=== PATIENT | male | born 1970 | race Caucasian/White ===

== ENCOUNTER 2023-03-08 10:19 | Outpatient (CLI) | payer BC, SELFPAY ==
--- NOTE | 2023-03-08 10:35 | ECG_ITS ---
Measurements Intervals [place] Rate: 60 P: 23 IA: 165 QRS: -2 QRSD: 94 T: 20 QT: 380 QTc: 382 Interpretive Statements SINUS RHYTHM NORMAL ECG NO PREVIOUS ECG AVAILABLE FOR COMPARISON Electronically Signed On 03-08-2023 19:40:57 CDT by Pino Carranza D.O.
== END 2023-03-08 10:20 | disposition home or self-care (01) ==
PROVIDERS: PCP Family Medicine; Visit Provider Physician Assistant Medical
DX: I25.2 Old myocardial infarction (principal); Z82.49 Family history of ischemic heart disease and other diseases of the circulatory system
CPT/HCPCS: 93005

== ENCOUNTER 2024-06-26 08:38 | Outpatient (CLI) | payer BC, SELFPAY ==
--- NOTE | 2024-06-26 08:55 | ECHO_ITS ---
Patient Info Name: Familia Romero Age: 53 years : 1970 Gender: Male Ht: 70 in Wt: 190 lbs BSA: 2.08 m2 HR: 73 bpm BP: 165 / 91 mmHg Technical Quality: Good Exam Date: 06/26/2024 9:07 AM Exam Location: Echo Lab Patient Status: Outpatient Admit Date: 06/26/2024 Staff Ordering Physician: Michelet Schulz NP Junior Art Director: Constanza Marcos RDCS Attending Provider: Michelet Schulz NP Referring Physician: Zeus ESCAMILLA; Exam Type: CA echo doppler color flow Study Info Indications I25.2 - OLD MYOCARDIAL INFARCTION Complete two-dimensional, color flow and Doppler transthoracic echocardiogram is performed. Strain analysis performed. Summary 1. Complete two-dimensional, color flow and Doppler transthoracic echocardiogram is performed. 2. Left ventricular chamber dimension is normal. 3. Left ventricular systolic function is normal, estimated at 65-70%. 4. The left ventricular diastolic function is abnormal. 5. E/e' 10 is mildly elevated. 6. Global longitudinal strain is normal at -18.6%. 7. Left atrial chamber dimension is mildly enlarged. 8. No pulmonary hypertension, estimated pulmonary arterial systolic pressure is 30 mmHg. Left Ventricle E/e' 10 is mildly elevated. Global longitudinal strain is normal at -18.6%. Left ventricular chamber dimension is normal. Left ventricular systolic function is normal, estimated at 65-70%. The left ventricular diastolic function is abnormal. Right Ventricle Right ventricular chamber dimension is normal. Right ventricular systolic function is normal. Left Atria Left atrial chamber dimension is mildly enlarged. Right Atria Right atrial chamber dimension is normal. Aortic Valve The aortic valve is trileaflet. There is no aortic valve stenosis. There is no aortic valve regurgitation. Pulmonic Valve There is no pulmonic regurgitation. Mitral Valve There is no mitral valve stenosis. There is no mitral valve regurgitation. Tricuspid Valve There is no tricuspid valve regurgitation. No pulmonary hypertension, estimated pulmonary arterial systolic pressure is 30 mmHg. Pericardium/Pleural There is no pericardial effusion. Inferior Vena Cava Normal inferior vena cava with >50% collapse upon inspiration consistent with normal right atrial pressure, 5 mmHg. Aorta The aortic root size at the sinus of Valsalva is normal. Left Ventricular Outflow Tract Name Value Normal LVOT 2D LVOT Diameter 2.0 cm LVOT Doppler LVOT Peak Gradient 5 mmHg LVOT Mean Gradient 3 mmHg LVOT VTI 25 cm LVOT VTI/AV VTI Ratio 1.0 LVOT Stroke Volume 75 ml LVOT CO 5.0 l/min LVOT CI 2.4 l/min/m2 Pulmonic Valve Name Value Normal RVOT Doppler RVOT Peak Gradient 3 mmHg PV Doppler PV Peak Gradient 5 mmHg Mitral Valve Name Value Normal MV Doppler MV Decel [place] 459 cm/s2 MV PHT 57 ms MV Area (PHT) 3.9 cm2 4.0-5.0 MV Diastolic Function MV E Peak Velocity 90 cm/s MV A Peak Velocity 80 cm/s MV E/A 1.1 MV Decel Time 196 ms Tricuspid Valve Name Value Normal TV Regurgitation Doppler TR Peak Velocity 249 cm/s TR Peak Gradient 25 mmHg Estimated PAP/RSVP RA Pressure 5 mmHg <=5 PA Systolic Pressure 30 mmHg <36 RV Systolic Pressure 30 mmHg <36 Aorta Name Value Normal Ascending Aorta Ao Root Diameter (MM) 3.2 cm Ao Root Diam Index (MM) 1.5 cm/m2 Aortic Valve Name Value Normal AV Doppler AV Peak Velocity 117 cm/s AV Peak Gradient 5 mmHg AV Mean Gradient 3 mmHg AV VTI 24 cm AV Area (Cont Eq VTI) 3.2 cm2 >=3.0 AV Area (Cont Eq [place]) 2.9 cm2 AV Regurgitation 2D LVOT Area 3.0 cm2 Ventricles Name Value Normal LV Dimensions 2D/MM IVS Diastolic Thickness (2D) 0.9 cm 0.6-1.0 IVS Diastole Thickness (MM) 0.9 cm 0.6-1.0 LVID Diastole (2D) 4.9 cm 4.2-5.8 LVID Diastole (MM) 5.1 cm 4.2-5.8 LVIW Diastolic Thickness (2D) 0.8 cm 0.6-1.0 LVIW Diastolic Thickness (MM) 0.9 cm 0.6-1.0 LVID Systole (2D) 3.2 cm 2.5-4.0 LVID Systole (MM) 2.8 cm 2.5-4.0 LVOT Diameter 2.0 cm LV Mass (2D Cubed) 136.65 g 88.00-224.00 LV Mass Index (2D Cubed) 66 g/m2 49-115 Relative Wall Thickness (2D) 0.31 LV Mass (MM Cubed) 151.28 g 88.00-224.00 LV Mass Index (MM Cubed) 73 g/m2 49-115 Relative Wall Thickness (MM) 0.34 LV Fractional Shortening/Ejection Fraction 2D/MM LV Fractional Shortening (2D) 35 % 25-43 LV Fractional Shortening (MM) 45 % 25-43 LV EF (MM Teicholz) 76 % 52-72 LV EF (2D Teicholz) 64 % 52-72 LV Diastolic Volume (4C MOD) 100 ml LV EF (4C MOD) 65 % LV Diastolic Volume (2C MOD) 70 ml LV EF (2C MOD) 58 % LV Diastolic Volume (BP MOD) 84 ml 62-150 LV Diastolic Volume Index (BP MOD) 40 ml/m2 34-74 LV Systolic Volume (BP MOD) 33 ml 21-61 LV Systolic Volume Index (BP MOD) 16 ml/m2 11-31 LV EF (BP MOD) 61 % 52-72 LV Diastolic Length (4C) 7.8 cm LV Systolic Length (4C) 6.5 cm LV Stroke Volume (4C MOD) 66 ml Atria Name Value Normal LA Dimensions LA Dimension (MM) 3.9 cm 3.0-4.1 LA Volume (4C A-L) 53 ml LA Volume (BP A-L) 49 ml RA Dimensions RA Area (4C) 13.6 cm2 <=18.0 EchoPAC Name Value Normal AutoEF LVCO_BiP_Q (Wejr9ZMO) 4.2 l/min LVEF_BiP_Q (Smgo1DJR) 63 % LVSV_BiP_Q (Tgkd7ZFO) 61 ml LVVED_BiP_Q (Pkmm0WWU) 98 ml LVVES_BiP_Q (Vmma3LDN) 37 ml HR_4Ch_Q (Yfnw1TTX) 66 bpm LVCO_4Ch_Q (Kwkb8CTX) 5.2 l/min LVEF_4Ch_Q (Bmzs8XOB) 64 % LVLd_4Ch_Q (Xwdo3IOE) 8.3 cm LVLs_4Ch_Q (Fokc4HPD) 6.8 cm LVSV_4Ch_Q (Lzes7DUE) 78 ml LVVED_4Ch_Q (Nnqn3ZUW) 123 ml LVVES_4Ch_Q (Iglk5REH) 44 ml HR_2Ch_Q (Roko8ADL) 69 bpm LVCO_2Ch_Q (Hlhc0TKO) 3.1 l/min LVEF_2Ch_Q (Hkvc3ABO) 60 % LVLd_2Ch_Q (Mxwb1UZL) 8.1 cm LVLs_2Ch_Q (Fqzc0EQA) 6.6 cm LVSV_2Ch_Q (Laui4GUC) 45 ml LVVED_2Ch_Q (Ouoz1OQR) 75 ml LVVES_2Ch_Q (Fvgk5UYG) 30 ml ERIBERTO AA peak sys SL (AWMA) 17.1 % AAS peak sys SL (AWMA) 24.9 % AI peak sys SL (AWMA) 24.4 % AL peak sys SL (AWMA) 14.2 % AP peak sys SL (AWMA) 20.3 % peak sys SL (AWMA) 19.7 % AVC (AWMA) 400 ms BA peak sys SL (AWMA) 18.3 % BAS peak sys SL (AWMA) 12.9 % BI peak sys SL (AWMA) 20.0 % BL peak sys SL (AWMA) 21.2 % BP peak sys SL (AWMA) 24.1 % BS peak sys SL (AWMA) 13.7 % G peak SL(A2C) (AWMA) 19.5 % G peak SL(A4C) (AWMA) 17.4 % G peak SL(APLAX) (AWMA) 19.2 % G peak SL(Avg) (AWMA) 18.7 % MA peak sys SL (AWMA) 15.4 % MAS peak sys SL (AWMA) 19.8 % VA peak sys SL (AWMA) 22.7 % ML peak sys SL (AWMA) 17.4 % MP peak sys SL (AWMA) 20.0 % MS peak sys SL (AWMA) 21.4 % Report Signatures
== END 2024-06-26 08:39 | disposition home or self-care (01) ==
PROVIDERS: PCP Family Medicine
DX: I47.9 Paroxysmal tachycardia, unspecified (principal); R01.1 Cardiac murmur, unspecified; I25.2 Old myocardial infarction
CPT/HCPCS: 93242; 93306